=== PATIENT | female | born 1940 | race Caucasian/White ===

== ENCOUNTER 2017-08-10 01:45 | Inpatient (IN) | payer OTHER, MEDICARE ==
[~2017-08-10] VITALS: Ht 152.4 cm; Wt 77.1 kg
[~2017-08-10 01:45] MED LIST: ATORVASTATIN CA80 M1 PO; LASIX80 M1 PO; NORVASC5 M1 PO; OMEPRAZOLE20 M2 PO; PROAIR HFA8.5 GM INH; TENORMIN50 M1 PO; UNITHROID75 MCG PO
--- NOTE | 2017-08-10 12:23 | Operative Report ---
Operative/Inv Procedure Report Surgery Date: 08/10/17 Name of Procedure: Robotic cholecystectomy Pre-Operative Diagnosis: Cholelithiasis with prior choledocholithiasis Post-Operative Diagnosis: Same, obesity Estimated Blood Loss: less than 50ml Surgeon/Sports Physiologist: Gregg DIOP,Douglas Julian PA-C Anesthesia: general endotracheal tube, block IV Fluids: 1500 mL crystalloid Specimens: None Microbiology: None Complications: None Condition: Stable extubated to PACU Operative Indication: Marce is a 77-year-old female with a presentation of the common bile duct stones cleared by ERCP. She has residual gallstones within her gallbladder and presents today to have a cholecystectomy done with the robot. Operative/Procedure Note Note: Patient was taken to the operating room placed on the operating table supine posi. A finger sweep revealed there were no adhesions tion. Following awake timeout she underwent induction of general endotracheal anesthesia uneventfully. She had her left arm by her side Venodyne boots in place and received Ancef IV prior to skin incision. The right arm was extended up from the body no Bertrand was used. Oh G-tube was placed. A Block was performed by the anesthesia team bilaterally. The abdomen was then prepped widely with ChloraPrep and draped in usual sterile fashion with the onset was infiltrated in the course of the planned incision which was supraumbilical and carried down through deep pannus to the midline subumbilical fascia. This was opened vertically for short distance to gain exposure the preperitoneal fat. This was opened carefully with the cautery to get entry safely into the peritoneal cavity. A finger sweep revealed there were no adhesions and a 12 mm air seal blunt port placed. A pneumoperitoneum was achieved and the 8 mm 30 scope inserted. There were no adhesions in the upper abdomen the patient was then placed in steep reversed Trendelenburg position to 20. We placed 318 mm working ports right about the level of the umbilicus 2 on the right side and 1 on the left side all after infiltrating local anesthetic under direct vision. The division she Brigido was then docked and the camera inserted. We placed a prograsp and arm 1, fenestrated bipolar into and a dissecting scissors monopolar cautery and 4 with the camera in 3. The gallbladder was not yet in view but with lifting the edge of the liver we could see the edge of the gallbladder and I was able to grasp and and delivered up to towards the diaphragm exposing the entire length of the gallbladder. There were no adhesions to it. The fenestrated grasper was used on Crum's and to expose the triangle. I could sweep off the omentum and duodenum and periduodenal tissues anesthetic good length of the triangle tissues. Fire fly was then used since the patient had been injected with 2 mL of ICG one half hour before surgery. I could see the cystic duct well and the general location of the common duct through the tissues. I opened the peritoneum close to the neck of the gallbladder reflecting a large lymph node upwards. Carried this dissection with the obinna and cautery neck and began dissecting in the fat of the triangle and a fine first the cystic duct and then very medially a cystic artery. The peritoneum up the medial edge of the gallbladder and around posterior laterally as well. I isolated the artery which again was very medial and then return to isolate the cystic duct. This was very wide and I after skeletonizing it better I really reinflated the fire fly view to be sure I was seeing only the cystic duct which was the case as I could see what the course of the common duct nicely. I isolated the wide cystic duct with the cautery and then clipped 2 on the patient's side. When I went to create slightly more room on the gallbladder side with cautery to some bleeding on the back of the gallbladder near the neck of the duct this proved to be a small crossing artery off a posterior branch. Large clips had been used on the cystic duct and I placed a third clip and slightly farther which the bleeding. I then placed a fourth clip the side this time on the gallbladder side and then divided the cystic duct. Indeed there was a small intramuscular vessel or vessel right on the surface of the cystic duct that bled slightly with transection but quickly cauterized with the scissors. With the neck of the gallbladder now more freely active but better traction on the area of the artery. I placed a large clip on the gallbladder side just at the neck of the large node having isolated this anterior branch artery there and then divided there as well. I now begin to mobilize the gallbladder off of the liver bed but was suspicious that I might run into the posterior artery that was feeding the cystic duct. I considered getting more proximal control on the MAIN cystic artery and and dissected slightly around the stump of where I had transected the cystic duct. I found the artery here and clipped it 2 on the patient's side but didn't need to divide its here since I had already clipped and divided the anterior branch and would be looking to divide the posterior branch as it pulled the gallbladder up. This worked out nicely as the gallbladder came away from the liver bed with some simple cautery and dissection and I did not encounter the posterior branch. The gallbladder came away from the liver bed nicely with no violation of the liver bed. The gallbladder did leak some bile from a point of retraction but this was quickly aspirated up. Prior to taking down the last communications between the gallbladder and liver I inspected all the clips and the liver bed and the triangle structures and there was no bile leak or bleeding. We irrigated some suctioned all the fluid out and any residual bile or blood. The gallbladder was then finally detached placed in extraction bag and removed from the Air Seal Port. The robot was then undocked and the ports removed under direct vision. There was no bleeding. The pneumoperitoneum was released completely and then the fascia at the umbilicus closed with 2 [id number] sutures of 0 Maxon. Subcutaneous tissue was reapproximated interrupted 3-0 Vicryl sutures followed by 4-0 Monocryl subcuticular on the skin. Steri-Strips 2 x 2's and OpSite were placed. He tolerated the procedure well and taken to the recovery room in satisfactory condition extubated or sponge needle and instrument count from his correct 2 completion of the case. Findings: Normal gallbladder with wide cystic duct requiring large clips. 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 Discharge Disposition: PACU
--- NOTE | 2017-08-10 13:49 | Patient Discharge Instructions ---
Discharge Instructions General Discharge Information You were seen/treated for: Cholelithiasis with prior choledocholithiasis You had these procedures: Surgery Date: 08/10/17 Name of Procedure: Robotic cholecystectomy Watch for these problems: fever>101.3, increased pain, redness/swelling/drainage, dizziness, shortness of breath, chest pains No bath, but you may shower: Yes Other wound care: ok to remove outer dressings. leave white steri strips in place. keep incisions clean & dry. Diet Continue normal diet: Yes Recommended Diet: Low Fat Activity Full Activity/No Limits: No Activity Self Limited: Yes Pounds, do NOT lift more than: 10 Other activity limits: no heavy lifting. no strenuous activity. Acute Coronary Syndrome Inclusion Criteria At DC or during hospital stay patient has or had the following: ACS DIAGNOSIS No Discharge Core Measures Meds if any: Prescribed or Continued at Discharge Meds if any: NOT Prescribed or Continued at Discharge Congestive Heart Failure Inclusion Criteria At DC or during hospital stay patient has or had the following: CHF DIAGNOSIS No Discharge Core Measures Meds if any: Prescribed or Continued at Discharge Meds if any: NOT Prescribed or Continued at Discharge Cerebrovascular accident Inclusion Criteria At DC or during hospital stay patient has or had the following: CVA/TIA Diagnosis No Discharge Core Measures Meds if any: Prescribed or Continued at Discharge Meds if any: NOT Prescribed or Continued at Discharge Venous thromboembolism Inclusion Criteria VTE Diagnosis No VTE Type NONE VTE Confirmed by (Test) NONE Discharge Core Measures - Per Current guidelines, there needs to be overlap - treatment for the first 5 days of Warfarin therapy. - If discharged on Warfarin prior to 5 days of - overlap therapy, the patient will need to be - assessed for post discharge needs including - *Post discharge parental anticoagulation - *Warfarin and/or parental anticoagulation education - *Follow up date to check INR post discharge At least 5 days overlap therapy as Inpatient No Meds if any: Prescribed or Continued at Discharge Note: Overlap Therapy is Warfarin and Anticoagulant Meds if any: NOT Prescribed or Continued at Discharge
[2017-08-10] MEDS ORDERED: PERCOCET 5-3251 EACH PO (13:52)
--- NOTE | 2017-08-10 13:57 | Surg Short-stay <48hrs Dis Sum ---
Visit Information Visit Dates Admission Date: 08/10/17 Discharge Date: 08/13/17 Surgical Short Stay DC Summary Admission Diagnosis: Cholelithiasis with prior choledocholithiasis Final Diagnosis: same, s/p same as above, s/p Robotic cholecystectomy (08/10/17) Procedure(s): Surgery Date: 08/10/17 Name of Procedure: Robotic cholecystectomy Summary/Significant Findings: Electively scheduled robotic cholecystectomy on 08/10/17 by for history of cholelithiasis with prior choledocholithiasis. Diet advanced as tolerated post-operatively. Pain control transitioned from iv to oral medication prior to discharge to home. Her liver function tests were checked post- operatively. Pain control transitioned from iv to oral medication as able. PT eval obtained for deconditioning. Chest and abdominal xrays ordered on post-op day#3 for reported shortness of breath with associated nausea for suspected post -op ileus, with o2 requirement of 2L nasal cannula. Condition at Discharge: stable Discharge Disposition: home or self care Discharge instructions provided to patient/family: Yes Post discharge follow-up plan: 2 week follow up with Copies to: Emma DIOP,Murray Robles
[2017-08-10 14:40] VITALS: BP 108/60
--- NOTE | 2017-08-10 16:22 | PN- General Surgery ---
Subjective Subjective: POST-OP NOTE Reports some abdominal discomfort. Intermittent nausea. Taking ice chips. Not yet out of bed. No dizziness. No shortness of breath. No chest pains. Objective Vital Signs and I&Os Vital Signs Date Time Temp Pulse Resp B/P B/P Pulse O2 O2 Flow FiO2 Mean Ox Delivery Rate 08/10 1440 98.1 66 18 108/60 94 Nasal 2.0L Cannula Intake & Output 08/10 1600 08/10 0800 08/10 0000 08/09 1600 08/09 0800 08/09 0000 Intake Total Output Total Balance Patient 170 lb Weight Physical Exam: General - alert & oriented x 3. comfortable. no acute distress. Lungs - clear bilaterally. no w/r/r. Cardiac - s1s2 Abdomen - soft. dressings c/d/i. expected billy-incisional tenderness. Extremities - warm bilaterally. no c/c/e. calves soft and nontender b/l. Current Medications: Current Medications Sig/Marquez Start time Last Medication Dose Route Stop Time Status Admin Acetaminophen 1,000 MG Q6H 08/10 1500 AC N/A 1 UNIT IV 08/11 0914 Amlodipine Besylate 5 MG DAILY 08/11 0900 AC PO Atenolol 50 MG BID 08/10 2100 AC PO Atorvastatin Calcium 80 MG 1700 08/10 1700 AC PO Dextrose/Sodium 1,000 ML Q13H 08/10 1445 AC 08/10 Chloride IV 1510 Docusate Sodium 100 MG BID PRN 08/10 1500 AC PO Fentanyl Citrate 250 MCG .STK-MED ONE 08/10 0715 DC IM 08/10 0716 Furosemide 80 MG DAILY 08/11 0900 AC PO Heparin Sodium 5,000 UNIT Q8 08/10 2200 AC (Porcine) SC Levothyroxine Sodium 0.075 MG DAILY AC 08/11 0700 AC PO Midazolam HCl 2 MG .STK-MED ONE 08/10 0716 DC IM 08/10 0717 Omeprazole 20 MG BID 08/10 2100 AC PO Oxycodone HCl 5 MG Q4-6 PRN PRN 08/10 1500 AC PO Oxycodone HCl 10 MG Q4-6 PRN PRN 08/10 1500 AC 08/10 PO 1504 Assessment/Plan Assessment/Plan This 77 year old female with hx asthma, htn, hld, gerd, is POD#0 s/p robotic cholecystectomy for hx cholelithiasis and prior choledocholithiasis advance diet as tolerated pain control as ordered f/u am labs hep sc - dvt ppx home meds ordered d/c planning for tomorrow morning will d/w Core Measures Venous Thromboembolism VTE Risk Factors Surgery No Mechanical VTE Prophylaxis d/t N/A MechProphylax Ordered No VTE Pharm Prophylaxis d/t NA PharmProphylax ordered
[2017-08-10 22:04] VITALS: BP 104/60
[2017-08-11 06:53] VITALS: BP 106/64
[2017-08-11 08:30] LABS: ABSOLUTE BASOPHIL COUNT 0 /CUMM (0.0-0.2); ABSOLUTE EOSINOPHIL COUNT 0 /CUMM (0.0-0.7); ABSOLUTE GRANULOCYTE CT 13.3 /CUMM (1.4-6.5); ABSOLUTE LYMPH COUNT 1.5 /CUMM (1.2-3.4); ABSOLUTE MONOCYTE COUNT 0.9 /CUMM (0.10-0.60); BASOPHIL % 0 % (0.0-2.0); EOSINOPHIL % 0 % (0-5); MEAN CORPUSCULAR HGB 29.2 PG (27.0-31.0); MEAN CORPUSCULAR HGB CONC 33.6 G/DL (33.0-37.0); MEAN CORPUSCULAR VOLUME 86.8 FL (81.0-99.0); MEAN PLATELET VOLUME 7.2 FL (7.4-10.4); PLATELET COUNT 257 /CUMM (130-400); RBC DISTRIBUTION WIDTH 16.8 % (11.5-14.5); RED BLOOD CELL CT 3.92 /CUMM (4.20-5.40); WHITE BLOOD CELL COUNT 15.7 /CUMM (4.8-10.8)
[2017-08-11 09:17] LABS: GRANULOCYTE % 84.6 % (42.2-75.2)
--- NOTE | 2017-08-11 09:22 | PN- General Surgery ---
See Addendum Surgical Brief Attending Note Brief Attending Note: Looks good sitting up in bed. C/O L port site area pain despite Kristine block. Hasnt been OOB yet. Abd is soft and tender around ports on L but not subcostal. LFTs fine but CBC pending. Lives alone and very arthritic so may need another day before going home. PT consult may be helpful
[2017-08-11 15:10] VITALS: BP 100/54
[2017-08-11 20:59] VITALS: BP 118/58
[2017-08-12 06:38] VITALS: BP 114/52
--- NOTE | 2017-08-12 10:44 | PN- General Surgery ---
See Addendum Subjective Subjective: Complaining of pain this morning - slow to recover Has not had much po other than liquids due to not wanting to eat. Denies nausea or pain with food. Ambulated in room with PT yesterday - has not been oob today. +flatus Objective Vital Signs and I&Os Vital Signs Date Time Temp Pulse Resp B/P B/P Pulse O2 O2 Flow FiO2 Mean Ox Delivery Rate 08/13 955 92 Nasal 1.0L Cannula 08/12 0956 90 Room Air 08/12 0953 98.8 08/12 0808 62 114/52 08/12 0807 62 114/52 08/12 0800 91 Nasal 1.0L Cannula 08/12 0638 100.5 62 20 114/52 91 08/12 0050 Nasal 1.0L Cannula 08/11 2058 99.4 74 18 118/58 94 Room Air 08/115 70 118/58 08/11 1600 93 Nasal 1.0L Cannula 08/11 1510 98.1 60 19 100/54 93 Nasal Cannula Intake & Output 08/12 1600 08/12 0800 08/12 0000 08/11 1600 08/11 0800 08/11 0000 Intake Total 250 1150 1000 850 900 Output Total 134 121 7778 550 Balance -450 250 -600 300 900 Intake, IV 300 400 600 300 Intake, Oral 250 850 600 250 600 Output, Urine 558 349 1976 550 Patient 170 lb Weight Physical Exam: Tmax 100.5, T current 98.8 Sat 98% on 1LNC General: in bed complaining of incisional pain which seems to radiate to her right hip although she also states that she has chronic pain including her back from arthritis and sciatica so that may be part of it per patient Abd: soft, good bowel sounds, nondistended, appropriate periincisional tenderness Ext: warm, no edema, calves are nontender Assessment/Plan Assessment/Plan 77yo female s/p robotic nicki pod 2 PT - assess for ability to dc home, she lives alone as her is in rehab right now continue pain management wean O2 encourage po intake May have to convert to full admission if she isn't able to be discharged later today. Core Measures Venous Thromboembolism VTE Risk Factors Surgery No Mechanical VTE Prophylaxis d/t N/A MechProphylax Ordered No VTE Pharm Prophylaxis d/t NA PharmProphylax ordered
[2017-08-12 12:26] LABS: ABSOLUTE BASOPHIL COUNT 0.1 /CUMM (0.0-0.2); ABSOLUTE EOSINOPHIL COUNT 0.1 /CUMM (0.0-0.7); ABSOLUTE GRANULOCYTE CT 12.1 /CUMM (1.4-6.5); ABSOLUTE LYMPH COUNT 1.7 /CUMM (1.2-3.4); ABSOLUTE MONOCYTE COUNT 0.8 /CUMM (0.10-0.60); BASOPHIL % 0.5 % (0.0-2.0); EOSINOPHIL % 0.6 % (0-5); HEMATOCRIT 35.5 % (37-47); MEAN CORPUSCULAR HGB CONC 33.5 G/DL (33.0-37.0); MEAN CORPUSCULAR VOLUME 86.5 FL (81.0-99.0); MEAN PLATELET VOLUME 6.8 FL (7.4-10.4); PLATELET COUNT 283 /CUMM (130-400); RBC DISTRIBUTION WIDTH 17.1 % (11.5-14.5); WHITE BLOOD CELL COUNT 14.8 /CUMM (4.8-10.8)
[2017-08-12 14:14] VITALS: BP 104/50
[2017-08-12 21:13] VITALS: BP 110/60
[2017-08-13 07:00] VITALS: BP 122/61
--- NOTE | 2017-08-13 08:00 | PN- General Surgery ---
See Addendum Subjective Subjective: Reported some shortness of breath earlier and pain with breathing. No chest pains. No dizziness. Intermittently nauseous. No vomiting. Passing flatus but no bm. She has not been walking. She states she does not use assistive devices at baseline for ambulation. Currently her is in a rehab facility, so she would be going home alone (with some help from her daughter). Objective Vital Signs and I&Os Vital Signs Date Time Temp Pulse Resp B/P B/P Pulse O2 O2 Flow FiO2 Mean Ox Delivery Rate 08/13 0000 Nasal 1.0L Cannula 08/129 70 110/60 08/12 2113 99.1 70 20 110/60 92 Nasal 1.0L Cannula 08/12 1600 93 Nasal 1.0L Cannula 08/12 1414 98.7 66 20 104/50 93 Nasal 1.0L Cannula 08/12 1315 93 Nasal 1.0L Cannula 08/12 0956 92 Nasal 1.0L Cannula 08/12 0956 90 Room Air 08/12 0953 98.8 08/12 0808 62 114/52 08/12 0807 62 114/52 08/12 0800 91 Nasal 1.0L Cannula Intake & Output 08/13 0800 08/13 0000 08/12 1600 08/12 0800 08/12 0000 08/11 1600 Intake Total 099 125 2277 1000 Output Total 300 300 223 261 5390 Balance -300 310 -450 250 -600 Intake, IV 10 300 400 Intake, Oral 600 250 850 600 Output, Urine 300 300 632 516 1346 Patient 170 lb Weight Physical Exam: General - alert & oriented x 3. comfortable. no acute distress. Lungs - decreased breath sounds bilateral bases. poor effort. Cardiac - s1s2. Abdomen - softly distended. bowel sounds appreciated. dressings c/d/i. expected billy-incisional tenderness. Extremities - warm bilaterally. trace edema b/l lower legs. calves soft and nontender. athrombics active b/l. Current Medications: Current Medications Sig/Marquez Start time Last Medication Dose Route Stop Time Status Admin Albuterol Sulfate 2 PUF Q4P PRN 08/10 2114 AC INH Amlodipine Besylate 5 MG DAILY 08/11 09 AC 08/12 PO 08 Atenolol 50 MG BID 08/10 2099 AC 08/12 PO 215 Atorvastatin Calcium 80 MG 1700 08/10 1699 AC 08/12 PO 1623 Docusate Sodium 100 MG BID PRN 08/10 1500 AC PO Furosemide 80 MG DAILY 08/11 0900 AC 08/12 PO 0808 Heparin Sodium 5,000 UNIT Q8 08/10 2200 AC 08/13 (Porcine) SC 0656 Levothyroxine Sodium 0.075 MG DAILY AC 08/11 0700 AC 08/13 PO 0656 Melatonin 5 MG AT BEDTIME 08/10 2245 AC 08/12 PO 215 Omeprazole 20 MG BID 08/10 2100 AC 08/12 PO 2158 Oxycodone HCl 5 MG Q4-6 PRN PRN 08/10 1500 AC 08/12 PO 1720 Oxycodone HCl 10 MG Q4-6 PRN PRN 08/10 1500 AC 08/13 PO 0434 Potassium Chloride 10 MEQ BID 08/11 1145 AC 08/12 PO 215 Results Last 48 Hours of Labs: Laboratory Tests 08/13 08/12 0700 1205 Chemistry Sodium (137 - 145 mmol/L) 140 Potassium (3.5 - 5.1 mmol/L) 3.9 Chloride (98 - 107 mmol/L) 97 L Carbon Dioxide (22 - 30 mmol/L) 33 H Anion Gap (5 - 16) 10 BUN (7 - 17 mg/dL) 9 Creatinine (0.5 - 1.0 mg/dL) 0.6 Estimated GFR (>60 ml/min) > 60 BUN/Creatinine Ratio (7 - 25 %) 15.0 Total Bilirubin (0.2 - 1.3 mg/dL) 1.3 Direct Bilirubin (< 0.4 mg/dL) 0.3 AST (14 - 36 U/L) 25 ALT (9 - 52 U/L) 44 Alkaline Phosphatase (<127 U/L) 98 Total Protein (6.3 - 8.2 g/dL) 5.8 L Albumin (3.5 - 5.0 g/dL) 3.2 L Hematology CBC w Diff Pending NO MAN DIFF REQ WBC (4.8 - 10.8 /CUMM) Pending 14.8 H RBC (4.20 - 5.40 /CUMM) Pending 4.10 L Hgb (12.0 - 16.0 G/DL) Pending 11.9 L Hct (37 - 47 %) Pending 35.5 L MCV (81.0 - 99.0 FL) Pending 86.5 MCH (27.0 - 31.0 PG) Pending 29.0 MCHC (33.0 - 37.0 G/DL) Pending 33.5 RDW (11.5 - 14.5 %) Pending 17.1 H Plt Count (130 - 400 /CUMM) Pending 283 MPV (7.4 - 10.4 FL) Pending 6.8 L Gran % (42.2 - 75.2 %) 82.0 H Lymphocytes % (20.5 - 51.1 %) 11.3 L Monocytes % (1.7 - 9.3 %) 5.6 Eosinophils % (0 - 5 %) 0.6 Basophils % (0.0 - 2.0 %) 0.5 Absolute Granulocytes (1.4 - 6.5 /CUMM) 12.1 H Absolute Lymphocytes (1.2 - 3.4 /CUMM) 1.7 Absolute Monocytes (0.10 - 0.60 /CUMM) 0.8 H Absolute Eosinophils (0.0 - 0.7 /CUMM) 0.1 Absolute Basophils (0.0 - 0.2 /CUMM) 0.1 Assessment/Plan Assessment/Plan This 77 year old female with hx asthma, htn, hld, gerd, is POD#3 s/p robotic cholecystectomy for hx cholelithiasis and prior choledocholithiasis, deconditioned with post-op hypoxia requiring O2 with reported shortness of breath this morning ?post-op ileus, atelectasis r/o infilatrate nauseous at times with low fat diet tylenol / oxycodone prn pain control PT eval. ?home vs str f/u cbc check cxr and abdominal multiview ?post-op ileus, atelectasis r/o infiltrated hep sc - dvt ppx oob/ambulation IST reviewed. wean O2 as able case management to assess for needs d/c planning will d/w Core Measures Venous Thromboembolism VTE Risk Factors Surgery No Mechanical VTE Prophylaxis d/t N/A MechProphylax Ordered No VTE Pharm Prophylaxis d/t NA PharmProphylax ordered
[2017-08-13 08:29] LABS: ABSOLUTE BASOPHIL COUNT 0 /CUMM (0.0-0.2); ABSOLUTE EOSINOPHIL COUNT 0 /CUMM (0.0-0.7); ABSOLUTE GRANULOCYTE CT 11.4 /CUMM (1.4-6.5); ABSOLUTE LYMPH COUNT 1.6 /CUMM (1.2-3.4); ABSOLUTE MONOCYTE COUNT 0.6 /CUMM (0.10-0.60); BASOPHIL % 0.3 % (0.0-2.0); EOSINOPHIL % 0.3 % (0-5); HEMATOCRIT 34.8 % (37-47); MEAN CORPUSCULAR HGB CONC 33.7 G/DL (33.0-37.0); MEAN PLATELET VOLUME 7.4 FL (7.4-10.4); PLATELET COUNT 254 /CUMM (130-400); RBC DISTRIBUTION WIDTH 16.6 % (11.5-14.5); RED BLOOD CELL CT 4.04 /CUMM (4.20-5.40); WHITE BLOOD CELL COUNT 13.6 /CUMM (4.8-10.8)
[2017-08-13 09:20] LABS: GRANULOCYTE % 83.5 % (42.2-75.2)
--- NOTE | 2017-08-13 10:08 | RADIOLOGY REPORT ---
EXAMINATION: XR ABDOMEN MULTIPLE VIEWS Chest x-ray 2 views CLINICAL INDICATION: Postop day 3 status post robotic surgery. Postop ileus shortness of breath nausea COMPARISON: None TECHNIQUE: Supine and upright views of the abdomen. 2 views of the chest FINDINGS: Abdomen: There is a small amount of free air below the diaphragm consistent with recent surgery. The gas pattern is nonobstructive. There are no suspicious calcifications. Right hip arthroplasties partially visualized there is spondylosis of the lumbar spine. CHEST: Free air below the right hemidiaphragm consistent with recent surgery. Low lung volumes likely due to suboptimal inspiration. Lungs clear. Cardiac silhouette mediastinum pulmonary vascularity are normal. IMPRESSION: Chest: No acute disease. ABDOMEN: Nonobstructive gas pattern. Free air consistent with recent surgery
[2017-08-13 14:50] VITALS: BP 110/58
[2017-08-13 21:19] VITALS: BP 118/64
[2017-08-14 06:23] VITALS: BP 114/60
--- NOTE | 2017-08-14 08:42 | PN- General Surgery ---
Subjective Subjective: Reports ongoing right upper quadrant pain. Liver function tests increasing yesterday. Difficulty mobolizing yesterday, which appears to be limited by pain. Tolerating diet. No nausea/vomiting. Passing flatus, but no bm. No dizziness. No shortness of breath. No chest pains. Objective Vital Signs and I&Os Vital Signs Date Time Temp Pulse Resp B/P B/P Pulse O2 O2 Flow FiO2 Mean Ox Delivery Rate 08/14 826 68 114/60 08/14 08 68 114/60 08/14 08 94 Nasal 2.0L Cannula 08/14 06 98.6 68 20 114/60 95 Nasal 2.0L Cannula 08/14 0000 Nasal 2.0L Cannula 08/13 2118 99.7 74 18 118/64 92 Nasal 2.0L Cannula 08/13 2017 74 118/64 08/13 1450 97.9 68 20 110/58 95 Nasal 2.0L Cannula 08/13 0924 70 120/64 08/13 0924 70 120/64 Intake & Output 08/14 1600 08/14 0808/14 0000 08/13 1600 08/13 0808/13 0000 Intake Total 240 240 720 Output Total 1000 600 300 Balance -760 240 120 -300 Intake, Oral 240 240 720 Number 0 Bowel Movements Output, Urine 1000 600 300 Physical Exam: General - alert & oriented x 3. comfortable. no acute distress. Lungs - clear. decreased breath sounds b/l bases. Cardiac - s1s2. Abdomen - softly distended. tenderness localized mostly to right upper quadrant and epigastrium. dressings c/d/i. Extremities - warm bilaterally. trace edema b/l lower legs. calves soft and nontender b/l. athrombics active b/l. Current Medications: Current Medications Sig/Marquez Start time Last Medication Dose Route Stop Time Status Admin Acetaminophen 500 MG Q4-6 PRN PRN 08/13 08 AC PO Albuterol Sulfate 2 PUF Q4P PRN 08/10 2114 AC INH Amlodipine Besylate 5 MG DAILY 08/11 0900 AC 08/14 PO 08 Atenolol 50 MG BID 08/10 2100 AC 08/14 PO 0826 Atorvastatin Calcium 80 MG 1700 08/10 1700 AC 08/13 PO 1750 Bisacodyl 10 MG DAILY NEEDED PRN 08/13 814 AC MO Docusate Sodium 100 MG BID 08/13 0900 AC 08/14 PO 0827 Docusate Sodium 100 MG BID PRN 08/10 1500 DC PO 08/13 0859 Furosemide 80 MG DAILY 08/11 0900 AC 08/14 PO 0826 Heparin Sodium 5,000 UNIT Q8 08/10 2200 AC 08/14 (Porcine) SC 0546 Levothyroxine Sodium 0.075 MG DAILY AC 08/11 0700 AC 08/14 PO 0546 Melatonin 5 MG AT BEDTIME 08/10 2245 AC 08/13 PO 2010 Omeprazole 20 MG BID 08/10 2100 AC 08/14 PO 08 Oxycodone HCl 5 MG Q4-6 PRN PRN 08/10 1500 AC 08/12 PO 172 Oxycodone HCl 10 MG Q4-6 PRN PRN 08/10 1500 AC 08/14 PO 0229 Polyethylene Glycol 17 GM DAILY PRN 08/13 2004 AC 08/13 PO 2013 Potassium Chloride 40 MEQ ONCE ONE 08/13 1345 DC 08/13 PO 08/13 1346 1532 Potassium Chloride 10 MEQ BID 08/11 1145 AC 08/14 PO 0833 Results Last 48 Hours of Labs: Laboratory Tests 08/14 08/13 08/13 0753 1254 0700 Chemistry Sodium (137 - 145 mmol/L) Pending 140 Potassium (3.5 - 5.1 mmol/L) Pending 3.2 L Chloride (98 - 107 mmol/L) Pending 94 L Carbon Dioxide (22 - 30 mmol/L) Pending 32 H Anion Gap (5 - 16) Pending 14 BUN (7 - 17 mg/dL) Pending 10 Creatinine (0.5 - 1.0 mg/dL) Pending 0.6 Estimated GFR (>60 ml/min) > 60 BUN/Creatinine Ratio (7 - 25 %) Pending 16.7 Total Bilirubin (0.2 - 1.3 mg/dL) Pending 1.8 H Direct Bilirubin (< 0.4 mg/dL) Pending 0.5 H AST (14 - 36 U/L) Pending 27 ALT (9 - 52 U/L) Pending 50 Alkaline Phosphatase (<127 U/L) Pending 142 H Total Protein (6.3 - 8.2 g/dL) Pending 6.1 L Albumin (3.5 - 5.0 g/dL) Pending 3.2 L Hematology CBC w Diff Pending NO MAN DIFF REQ WBC (4.8 - 10.8 /CUMM) Pending 13.6 H RBC (4.20 - 5.40 /CUMM) Pending 4.04 L Hgb (12.0 - 16.0 G/DL) Pending 11.7 L Hct (37 - 47 %) Pending 34.8 L MCV (81.0 - 99.0 FL) Pending 86.0 MCH (27.0 - 31.0 PG) Pending 29.0 MCHC (33.0 - 37.0 G/DL) Pending 33.7 RDW (11.5 - 14.5 %) Pending 16.6 H Plt Count (130 - 400 /CUMM) Pending 254 MPV (7.4 - 10.4 FL) Pending 7.4 Gran % (42.2 - 75.2 %) 83.5 H Lymphocytes % (20.5 - 51.1 %) 11.4 L Monocytes % (1.7 - 9.3 %) 4.5 Eosinophils % (0 - 5 %) 0.3 Basophils % (0.0 - 2.0 %) 0.3 Absolute Granulocytes (1.4 - 6.5 /CUMM) 11.4 H Absolute Lymphocytes (1.2 - 3.4 /CUMM) 1.6 Absolute Monocytes (0.10 - 0.60 /CUMM) 0.6 Absolute Eosinophils (0.0 - 0.7 /CUMM) 0 Absolute Basophils (0.0 - 0.2 /CUMM) 0 04/15 1205 Chemistry Sodium (137 - 145 mmol/L) 140 Potassium (3.5 - 5.1 mmol/L) 3.9 Chloride (98 - 107 mmol/L) 97 L Carbon Dioxide (22 - 30 mmol/L) 33 H Anion Gap (5 - 16) 10 BUN (7 - 17 mg/dL) 9 Creatinine (0.5 - 1.0 mg/dL) 0.6 Estimated GFR (>60 ml/min) > 60 BUN/Creatinine Ratio (7 - 25 %) 15.0 Total Bilirubin (0.2 - 1.3 mg/dL) 1.3 Direct Bilirubin (< 0.4 mg/dL) 0.3 AST (14 - 36 U/L) 25 ALT (9 - 52 U/L) 44 Alkaline Phosphatase (<127 U/L) 98 Total Protein (6.3 - 8.2 g/dL) 5.8 L Albumin (3.5 - 5.0 g/dL) 3.2 L Hematology CBC w Diff NO MAN DIFF REQ WBC (4.8 - 10.8 /CUMM) 14.8 H RBC (4.20 - 5.40 /CUMM) 4.10 L Hgb (12.0 - 16.0 G/DL) 11.9 L Hct (37 - 47 %) 35.5 L MCV (81.0 - 99.0 FL) 86.5 MCH (27.0 - 31.0 PG) 29.0 MCHC (33.0 - 37.0 G/DL) 33.5 RDW (11.5 - 14.5 %) 17.1 H Plt Count (130 - 400 /CUMM) 283 MPV (7.4 - 10.4 FL) 6.8 L Gran % (42.2 - 75.2 %) 82.0 H Lymphocytes % (20.5 - 51.1 %) 11.3 L Monocytes % (1.7 - 9.3 %) 5.6 Eosinophils % (0 - 5 %) 0.6 Basophils % (0.0 - 2.0 %) 0.5 Absolute Granulocytes (1.4 - 6.5 /CUMM) 12.1 H Absolute Lymphocytes (1.2 - 3.4 /CUMM) 1.7 Absolute Monocytes (0.10 - 0.60 /CUMM) 0.8 H Absolute Eosinophils (0.0 - 0.7 /CUMM) 0.1 Absolute Basophils (0.0 - 0.2 /CUMM) 0.1 Assessment/Plan Assessment/Plan This 77 year old female with hx asthma, htn, hld, gerd, is POD#4 s/p robotic cholecystectomy for hx cholelithiasis and prior choledocholithiasis, deconditioned with worsening transaminitis yesterday tolerating low fat diet pain improves with oxycodone continue PT. appears that she will likely need STR f/u labs this morning hep sc - dvt ppx oob/ambulation IST reviewed. wean O2 as able will d/w Core Measures Venous Thromboembolism VTE Risk Factors Surgery No Mechanical VTE Prophylaxis d/t N/A MechProphylax Ordered No VTE Pharm Prophylaxis d/t NA PharmProphylax ordered
[2017-08-14 09:02] LABS: ABSOLUTE BASOPHIL COUNT 0 /CUMM (0.0-0.2); ABSOLUTE EOSINOPHIL COUNT 0.1 /CUMM (0.0-0.7); ABSOLUTE GRANULOCYTE CT 9.3 /CUMM (1.4-6.5); ABSOLUTE LYMPH COUNT 1.7 /CUMM (1.2-3.4); ABSOLUTE MONOCYTE COUNT 0.8 /CUMM (0.10-0.60); BASOPHIL % 0.3 % (0.0-2.0); EOSINOPHIL % 1.2 % (0-5); GRANULOCYTE % 77.4 % (42.2-75.2); HEMATOCRIT 34.5 % (37-47); MEAN CORPUSCULAR HGB 28.9 PG (27.0-31.0); MEAN CORPUSCULAR HGB CONC 33.4 G/DL (33.0-37.0); MEAN CORPUSCULAR VOLUME 86.5 FL (81.0-99.0); MEAN PLATELET VOLUME 7.2 FL (7.4-10.4); PLATELET COUNT 308 /CUMM (130-400); RBC DISTRIBUTION WIDTH 16.6 % (11.5-14.5); RED BLOOD CELL CT 3.99 /CUMM (4.20-5.40)
--- NOTE | 2017-08-14 12:26 | PN- General Surgery ---
Surgical Brief Attending Note Brief Attending Note: Patient overall slowly getting better Transaminases slightly BUT bili Rocha down and within normal limits Still requiring O2 via nasal cannula Plan: Medical consult today regarding hypoxia Pending medical consult likely discharge home tomorrow morning
--- NOTE | 2017-08-14 14:20 | Cons- Medical ---
Karthik DIOP,[facility] 08/14/17 1420: General Information and HPI Consulting Request Date of Consult: 08/14/17 Requested By: Gregg DIOP,Douglas Albarran Reason for Consult: Hypoxia Source of Information: patient, family, old records Exam Limitations: no limitations History of Present Illness: Mrs. Zheng is a pleasant 77-year-old female with past medical history of abdominal aortic aneurysm, arthralgia, cutaneous T-cell lymphoma, hypothyroidism , dyslipidemia, GERD, hyperlipidemia, hypertension, macular degeneration, osteoarthritis, TIA and choledocholithiasis who came in for a scheduled robotic cholecystectomy on 08/10/2017. Surgical procedure performed by Dr Escobedo without any complications. She was initially pain controlled with IV pain medications and transitioned to oral medications. Her LFTs have been monitored and appeared normal. Patient also has been working with physical therapy. The medical team was consulted due to the fact that the patient remains persistently hypoxemic. At the time of our clinical interaction the patient was alert and oriented. She appeared comfortable. She endorsed no complaints except she states that she's had a difficult time tolerating by mouth intake due to abdominal pain. She also states that she would like to be weaned off oxygen owing to the fact that she doesn't use oxygen at home. Denied any fever, chills, nausea, vomiting. For anticoagulation the patient has been maintained on heparin subcutaneous 5000 units every 8. Allergies/Medications Allergies: Coded Allergies: lisinopril (cough 08/10/17) sulfamethoxazole (From BACTRIM) (HIVES 08/08/17) trimethoprim (From BACTRIM) (HIVES 08/08/17) Current Medications: Current Medications Sig/Marquez Start time Last Medication Dose Route Stop Time Status Admin Acetaminophen 500 MG Q4-6 PRN PRN 08/13 08 AC PO Albuterol Sulfate 2 PUF Q4P PRN 08/10 2115 AC INH Amlodipine Besylate 5 MG DAILY 08/11 09 AC 08/14 PO 0827 Atenolol 50 MG BID 08/10 2100 AC 08/14 PO 0826 Atorvastatin Calcium 80 MG 1700 08/10 1700 AC 08/13 PO 1750 Bisacodyl 10 MG DAILY NEEDED PRN 08/13 0815 AC NC Docusate Sodium 100 MG BID 08/13 09 AC 08/14 PO 08 Furosemide 80 MG DAILY 08/11 0900 AC 08/14 PO 0826 Heparin Sodium 5,000 UNIT Q8 08/10 2200 AC 08/14 (Porcine) SC 1327 Levothyroxine Sodium 0.075 MG DAILY AC 08/11 0700 AC 08/14 PO 0546 Melatonin 5 MG AT BEDTIME 08/10 2245 AC 08/13 PO 2010 Omeprazole 20 MG BID 08/10 2100 AC 08/14 PO 0827 Oxycodone HCl 5 MG Q4-6 PRN PRN 08/10 1500 AC 08/12 PO 1720 Oxycodone HCl 10 MG Q4-6 PRN PRN 08/10 1500 AC 08/14 PO 1141 Polyethylene Glycol 17 GM DAILY PRN 08/13 2004 AC 08/13 PO 2012 Potassium Chloride 10 MEQ BID 08/11 1145 AC 08/14 PO 0833 Review of Systems Review of Systems Constitutional: Reports: see HPI, weakness. Denies: chills, diaphoresis, fever, malaise. GI: Reports: abdominal pain. Denies: bloating, constipation. Past History Travel History Traveled to [place] past 21 day No Medical History Blood Transfusion Hx: Yes Neurological: TIA EENT: cataracts Cardiovascular: aortic aneurysm, hypertension Respiratory: NONE Gastrointestinal: GERD Hepatic: cholelithiasis Renal: NONE Musculoskeletal: osteoarthritis Psychiatric: NONE Endocrine: hypothyroidism Blood Disorders: NONE Cancer(s): CONT T CELL LYPHOMA "CTCL" [employer] STRATEGY/Reproductive: NONE Surgical History Surgical History: cholecystectomy Psychosocial History Where Do You Live? Home Smoking Status: Former Smoker Exam & Diagnostic Data Last 24 Hrs of Vital Signs/I&O Vital Signs Date Time Temp Pulse Resp B/P B/P Pulse O2 O2 Flow FiO2 Mean Ox Delivery Rate 08/14 826 68 114/60 08/14 0826 68 114/60 08/14 0800 94 Nasal 2.0L Cannula 08/14 0623 98.6 68 20 114/60 95 Nasal 2.0L Cannula 08/14 0000 Nasal 2.0L Cannula 08/139 99.7 74 18 118/64 92 Nasal 2.0L Cannula 08/13 2017 74 118/64 08/13 1450 97.9 68 20 110/58 95 Nasal 2.0L Cannula Intake & Output 08/14 1600 08/14 0800 08/14 0000 Intake Total 450 240 240 Output Total 350 1000 Balance 100 -760 240 Intake, Oral 450 240 240 Number 0 Bowel Movements Output, Urine 350 1000 Physical Exam General Appearance: well developed/nourished, no apparent distress, alert, awake , comfortable Ears, Nose, Throat: normal pharynx, normal ENT inspection Neck: normal inspection, supple Respiratory: normal breath sounds, chest non-tender, no respiratory distress Cardiovascular: regular rate/rhythm Peripheral Pulses: 4+ dorsalis pedis (R), 4+ dorsalis pedis (L) Gastrointestinal: normal bowel sounds, soft, guarding, tenderness, Bandages in place from recent surgery Back: normal inspection Extremities: no edema, Lower extremity swelling. No calf tenderness. Neurologic/Psych: awake, alert, oriented x 3, program mgr II-XII nml as tested Cranial Nerves: normal hearing, normal speech, PERRL Last 24 Hrs of Labs/Alfonzo: Laboratory Tests 08/14/17 1555: D-Dimer High Sensitivty Cancelled 08/14/17 0753: Anion Gap 11, Estimated GFR > 60, BUN/Creatinine Ratio 18.0, Magnesium 2.0, Total Bilirubin 1.1, Direct Bilirubin 0.3, AST 31, ALT 69 H, Alkaline Phosphatase 145 H, Total Protein 5.8 L, Albumin 3.0 L, CBC w Diff NO MAN DIFF REQ, RBC 3.99 L, MCV 86.5, MCH 28.9, MCHC 33.4, RDW 16.6 H, MPV 7.2 L, Gran % 77.4 H, Lymphocytes % 14.2 L, Monocytes % 6.9, Eosinophils % 1.2, Basophils % 0.3, Absolute Granulocytes 9.3 H, Absolute Lymphocytes 1.7, Absolute Monocytes 0.8 H, Absolute Eosinophils 0.1, Absolute Basophils 0 Diagnostic Data CXR Results SERVICE DATE: 08/13/17- EXAM TYPE: RAD - [id number] VIEWS; XRY-CHEST XRAY, TWO VIEWS EXAMINATION: XR ABDOMEN MULTIPLE VIEWS Chest x-ray 2 views CLINICAL INDICATION: Postop day 3 status post robotic surgery. Postop ileus shortness of breath nausea COMPARISON: None TECHNIQUE: Supine and upright views of the abdomen. 2 views of the chest FINDINGS: Abdomen: There is a small amount of free air below the diaphragm consistent with recent surgery. The gas pattern is nonobstructive. There are no suspicious calcifications. Right hip arthroplasties partially visualized there is spondylosis of the lumbar spine. CHEST: Free air below the right hemidiaphragm consistent with recent surgery. Low lung volumes likely due to suboptimal inspiration. Lungs clear. Cardiac silhouette mediastinum pulmonary vascularity are normal. IMPRESSION: Chest: No acute disease. ABDOMEN: Nonobstructive gas pattern. Free air consistent with recent surgery DICTATED BY: Jc Mcguire MD Other Results LOCATION: [facility] ORDERING PHYSICIAN: Maryjo CORONADO SERVICE DATE: 08/13/17- EXAM TYPE: RAD - HYN-CRLEMQG-HCNGKPJA VIEWS; XRY-CHEST XRAY, TWO VIEWS EXAMINATION: XR ABDOMEN MULTIPLE VIEWS Chest x-ray 2 views CLINICAL INDICATION: Postop day 3 status post robotic surgery. Postop ileus shortness of breath nausea COMPARISON: None TECHNIQUE: Supine and upright views of the abdomen. 2 views of the chest FINDINGS: Abdomen: There is a small amount of free air below the diaphragm consistent with recent surgery. The gas pattern is nonobstructive. There are no suspicious calcifications. Right hip arthroplasties partially visualized there is spondylosis of the lumbar spine. CHEST: Free air below the right hemidiaphragm consistent with recent surgery. Low lung volumes likely due to suboptimal inspiration. Lungs clear. Cardiac silhouette mediastinum pulmonary vascularity are normal. IMPRESSION: Chest: No acute disease. ABDOMEN: Nonobstructive gas pattern. Free air consistent with recent surgery DICTATED BY: Jc Mcguire MD Assessment/Plan Assessment/Plan Mrs. Zheng is a pleasant 77-year-old female with past medical history of abdominal aortic aneurysm, arthralgia, cutaneous T-cell lymphoma, hypothyroidism , dyslipidemia, GERD, hyperlipidemia, hypertension, macular degeneration, osteoarthritis, TIA and choledocholithiasis who came in for a scheduled robotic cholecystectomy on 08/10/2017. Her postop course has been complicated by continued abdominal pain as well as continued hypoxia. This is concerning in the setting of prolonged immobility, history of oncological issue (cutaneous T-cell lymphoma) and recent surgery. #Acute hypoxic respiratory failure. Differentials include PE, Atelectasis due to decreased respiratory compliance in the setting of abdominal pain/generalized deconditioning. Doppler of lower extremity to rule out DVT. CTA rule out PE. Encourage use of Incentive spirometer Adequate pain control to ensure patient's able to inspire. Use opiods sparingly. Monitor Pulse Ox. Taper O2 PRN. #Abdominal Pain s/p recent cholecytectomy. Wound looks clean dry and intact. No strikethrough or any signs of leak. No erythema. Plan Continue to monitor and if pain does not get better may consider imaging studies (CT abdomen) to ensure bile duct leak is not occurring. Use opiate medication sparingly. #History of hypothyroidism. Clinically euthyroid. Will continue levothyroxine 0.075 mg. History of hypertension Well-controlled BP 110/64 Plan Continue amlodipine 5 mg daily. History of GERD Currently stable Plan Continue omeprazole 20 mg daily. History of dyslipidemia Stable Plan Continue Atorvastatin 80 mg daily. Low fat diet. DVT PPX Heparin subcutaneous and consider heparin IV if positive for PE. Patient is a full code. DVT prophylaxis on heparin subcutaneous. May consider addition to heparin if above is positive for DVT. Patient is a full code. Problem List: 1. Hypoxia Consult Acknowledgment - Thank you for your consult request. Jc Do MD 08/14/17 6083: General Information and HPI Allergies/Medications Home Med List: Albuterol Sulfate (Proair Hfa) 90 MCG HFA.AER.AD 2 PUF INH PRN WHEEZING ( Reported) Amlodipine Besylate (Norvasc) 5 MG TABLET 1 TAB PO QAM BP (Reported) Atenolol (Tenormin) 50 MG TABLET 1 TAB PO BID BP (Reported) Atorvastatin Calcium 80 MG TABLET 1 TAB PO QPM CHOLESTEROL (Reported) Furosemide (Lasix) 80 MG TABLET 1 TAB PO QAM DIURETIC (Reported) Levothyroxine Sodium (Unithroid) 75 MCG TABLET 1 TAB PO DAILY AC THYROID ( Reported) Omeprazole 20 MG CAPSULE.DR 1 CAP PO BID PRN GI (Reported) Oxycodone HCl 5 MG TABLET 1-2 TAB PO Q4-6 PRN PAIN Assessment/Plan Consult Acknowledgment - Thank you for your consult request. Attending MD Review Statement Attending Statement Attending MD Statement: examined this patient, discuss w/resident/PA/VAMP CREASER, agreed w/resident/PA/VAMP CREASER, reviewed EMR data (avail), discussed with nursing, discussed with case mgmt, reviewed images, amended to note Attending Assessment/Plan: The patient is a 77 yo female with h/o lymphoma, CVA, GERD, hypothyroidism, HL, HTN, OA, and macular degeneration who was admitted post elective robotic lap cholecystectomy (had ERCP and stone extraction prior to admission). Medicine consult was called as she was not improving as well as typical with persistent mild hypoxemia and abdominal pain. The patient admitted to being relatively immobile prior to admission due to recent illness. She also noted some swelling of legs bilaterally which is new. She was evaluated pre-operatively by her waste examiner and was considered low risk. She denied any fever, chills, palpitations. Does not some residual right upper abdominal discomfort. She has no h/o lung disease. Physical Exam: VS: T 99.7, P 74, r 20, BP 114/60, PO 92-94% on 2L HEENT: vitaliy- dry mucosa Neck: no JVD/bruits Chest: diminished BS at bases, clear Cor: RRR nl S1, S2 w/o murm Abd: BS+, softly distended, mild RUQ/epigastric tenderness w/o guarding or rebound Ext: tr-1+ edema bilaterally with mild tenderness w/o cords Neuro: alert & oriented x 2, non-focal exam Labs/Tests as above Impression/Plan: #Hypoxemia- patient with diminished pulse ox noted 2 days post op. Possible etiologies include atelectasis secondary to hypoventilation (has not bee using incentive spirometry properly as per nursing). With recent immobility and new leg swelling must consider pulmonary embolism as possibility. D-Dimer likely to be elevated due to recent ERCP/surgery. Plan: Agree with CTPA and LE . Encourage Incentive Spirometry. Follow pulse ox. #Abdominal Pain- post op robotic lap nicki. Still with some pain and mild LFT elevation. CT did not show evidence of bile leak or infection/obstruction. Most likely normal post operative discomfort. Plan: Will follow symptoms. #Hypothyroid- on Levothyroxine. Plan: Continue Levothyroxine. #GERD- on Omeprazole Plan: Continue Omeprazole. #HTN- BP stable on Atenolol. Plan: Continue Atenolol. #Hyperlipidemia- on Atorvastatin. Plan: Continue Atorvastatin.
[2017-08-14 14:58] VITALS: BP 110/64
--- NOTE | 2017-08-14 19:11 | ULTRASOUND REPORT ---
EXAMINATION: US TRIPLEX OF LOWER EXTREMITIES, BILATERAL CLINICAL INFORMATION: Prolonged immobility. Lower extremity swelling. COMPARISON: None TECHNIQUE: Color-flow triplex imaging with spectral analysis and compression Doppler were performed on the lower extremities. FINDINGS: Respiratory variation, normal compression and augmented flow are noted throughout the lower extremities. The visualized common femoral vein, superficial femoral vein, profunda femoral vein, popliteal vein and midcalf peroneal and posterior tibial venous segments show no evidence of deep venous thrombosis. There is a 3.1 x 1.3 x 0.6 cm Subramanian cyst in the right popliteal fossa medially. The left popliteal fossa appears normal. IMPRESSION: No evidence of deep venous thrombosis involving the lower extremities. Right popliteal fossa Subramanian's cyst.
--- NOTE | 2017-08-14 19:19 | CT SCAN REPORT ---
EXAMINATION: CT ANGIOGRAM OF THE CHEST WITH AND WITHOUT CONTRAST (CT PULMONARY ANGIOGRAM FOR PE) CLINICAL INFORMATION: HYPOXIA, recent surgery COMPARISON: None TECHNIQUE: Prior to contrast administration, noncontrast localization images were obtained. Subsequently, multidetector volumetric imaging was performed from the thoracic inlet to below the diaphragms following the administration of 95 mL Optiray 320 intravenous contrast. No contrast reaction reported. Sagittal, coronal, and MIP oblique sagittal reformatted images were obtained on the CT workstation, uploaded to PACS, and reviewed. Total exam dose-length product 520.83 mGy-cm. FINDINGS: QUALITY OF STUDY/CONTRAST BOLUS: Satisfactory PULMONARY ARTERIES: No central or segmental pulmonary emboli. THORACIC AORTA: No aneurysm or dissection. LUNG: There is a small right basilar infiltrate/atelectasis at the posterior dependent lung.. PLEURA: There is a small dependent right pleural effusion. MEDIASTINUM: Normal heart size. No pericardial effusion. No hilar or mediastinal lymphadenopathy. No evidence of septal bowing or right heart strain. There is coronary artery calcification. CHEST WALL/AXILLA: No axillary or internal mammary lymphadenopathy. OSSEOUS STRUCTURES: Degenerative spondylosis spine with multilevel disc height narrowing and endplate spurring. UPPER ABDOMEN: There is pneumobilia. There is subcutaneous stranding in the right upper quadrant posteriorly. There is some subtle stranding in the mesenteric fat at the gallbladder fossa also around the inferior liver margin. The gallbladder is absent. Changes consistent with history of recent surgery, cholecystectomy. There is no focal fluid collection or abscess in the right upper quadrant. IMPRESSION: 1. No evidence of pulmonary embolism. 2. Right basilar infiltrate/atelectasis with small dependent right pleural effusion. 3. Postsurgical changes from prior cholecystectomy right upper quadrant. VTE: negative
[2017-08-14 22:28] VITALS: BP 110/70
[2017-08-15 06:52] VITALS: BP 108/68
--- NOTE | 2017-08-15 07:16 | PN- Medicine Consult ---
See Addendum Assessment/PlanMedical Consult Assessment/Plan Assessment: Mrs. Zheng is a pleasant 77-year-old female with past medical history of abdominal aortic aneurysm, arthralgia, cutaneous T-cell lymphoma, hypothyroidism , dyslipidemia, GERD, hyperlipidemia, hypertension, macular degeneration, osteoarthritis, TIA and choledocholithiasis who came in for a scheduled robotic cholecystectomy on 08/10/2017. Her postop course has been complicated by continued abdominal pain as well as continued hypoxia. This is concerning in the setting of prolonged immobility, history of oncological issue (cutaneous T-cell lymphoma) and recent surgery. Plan: #Acute hypoxic respiratory failure. PE and DVT ruled out. Encourage use of Incentive spirometer Adequate pain control to ensure patient's able to inspire. Use opiods sparingly. Monitor Pulse Ox. Taper O2 PRN. #Abdominal Pain s/p recent cholecytectomy. Wound looks clean dry and intact. No strikethrough or any signs of leak. No erythema. Plan Use opiate medication sparingly. #History of hypothyroidism. Clinically euthyroid. Will continue levothyroxine 0.075 mg. History of hypertension Well-controlled BP 108/68 Plan Continue amlodipine 5 mg daily. History of GERD Currently stable Plan Continue omeprazole 20 mg daily. History of dyslipidemia Stable Plan Continue Atorvastatin 80 mg daily. Low fat diet. DVT PPX Heparin subcutaneous Patient is a full code. Subjective Subjective: Ms. Puentes was seen and examined this morning. She is resting comfortably in bed. Denies any issues overnight. States that she feels much better this morning. Patient does not endorse any SOB. States Abdominal pain is better controlled. Pain is rated at a 4 out of 10 in severity. Had a small BM this am. Denies any fever, chills, nausea, vomiting. Denies any heart palpitations or chest discomfort. She is tolerating by mouth intake well. Review of Systems Constitutional: Reports: see HPI. Objective Last 24 Hrs of Vital Signs/I&O Vital Signs Date Time Temp Pulse Resp B/P B/P Pulse O2 O2 Flow FiO2 Mean Ox Delivery Rate 08/15 0818 108/68 08/15 0918 108/68 08/15 0652 97.9 66 20 108/68 94 / 0000 93 Nasal 1.0L Cannula 08/14 2228 98.2 78 18 110/70 93 Nasal 2.0L Cannula 08/14 1800 Nasal 1.0L Cannula 08/14 1458 98.4 70 20 110/64 96 Nasal Cannula Intake & Output 08/15 1600 08/15 0800 08/15 0000 Intake Total 150 720 Output Total 600 600 Balance -450 120 Intake, Oral 150 720 Number 2 Bowel Movements Output, Urine 600 600 Physical Exam General Appearance: well developed/nourished, no apparent distress Ears, Nose, Throat: normal pharynx Neck: normal inspection Cardiovascular: regular rate/rhythm Respiratory: normal breath sounds Peripheral Pulses: 4+ dorsalis pedis (R), 4+ dorsalis pedis (L) Abdomen: normal bowel sounds, soft, non-tender, No Guarding. Abdominal Bandages in place. Back: normal inspection, normal range of motion Extremities: normal inspection, normal capillary refill, normal range of motion, no edema Neurologic/Psychiatric: awake, alert, oriented x 3 Current Medications: Current Medications Sig/Marquez Start time Last Medication Dose Route Stop Time Status Admin Acetaminophen 500 MG Q4-6 PRN PRN 08/13 0800 AC PO Albuterol Sulfate 2 PUF Q4P PRN 08/10 2115 AC INH Amlodipine Besylate 5 MG DAILY 08/11 0900 AC 08/15 PO 0918 Atenolol 50 MG BID 08/10 2100 AC 08/15 PO 0918 Atorvastatin Calcium 80 MG 1700 08/10 1700 AC 08/14 PO 1617 Bisacodyl 10 MG DAILY NEEDED PRN 08/13 0815 AC WA Docusate Sodium 100 MG BID 08/13 0900 AC 08/15 PO 0918 Furosemide 80 MG DAILY 08/11 0900 AC 08/15 PO 0918 Heparin Sodium 5,000 UNIT Q8 08/10 2200 AC 08/15 (Porcine) SC 0522 Levothyroxine Sodium 0.075 MG DAILY AC 08/11 0700 AC 08/15 PO 0522 Melatonin 5 MG AT BEDTIME 08/10 2245 AC 08/14 PO 2131 Omeprazole 20 MG BID 08/10 2100 AC 08/15 PO 0918 Oxycodone HCl 5 MG Q4-6 PRN PRN 08/10 1500 AC 08/12 PO 1720 Oxycodone HCl 10 MG Q4-6 PRN PRN 08/10 1500 AC 08/14 PO 2131 Patient Medication 1 ED ONE ONE 08/14 1645 DC 08/14 Teaching ED 08/14 1646 2132 Polyethylene Glycol 17 GM DAILY PRN 08/13 2004 AC 08/13 PO 2012 Potassium Chloride 10 MEQ BID 08/11 114 AC 08/15 PO 0918 Results Last 24 Hrs Lab/[facility] Results: Laboratory Tests 08/15/17 0713: Anion Gap 12, Estimated GFR > 60, BUN/Creatinine Ratio 16.0, Total Bilirubin 0.8 , Direct Bilirubin 0.5 H, AST 38 H, ALT 54 H, Alkaline Phosphatase 157 H, Total Protein 5.8 L, Albumin 2.9 L, CBC w Diff Pending, WBC Pending, RBC Pending, Hgb Pending, Hct Pending, MCV Pending, MCH Pending, MCHC Pending, RDW Pending, Plt Count Pending, MPV Pending 08/14/17 1555: D-Dimer High Sensitivty Cancelled Microbiology 08/14 1551 URINE ROUT: Urine Culture - COLB Recent Imaging Studies: SERVICE DATE: 08/14/17-1616 EXAM TYPE: CAT - CTA CHEST-PULMONARY EMBOLISM IMPRESSION: 1. No evidence of pulmonary embolism. 2. Right basilar infiltrate/atelectasis with small dependent right pleural effusion. 3. Postsurgical changes from prior cholecystectomy right upper quadrant. VTE: negative DICTATED BY: Yonas Goins MD SERVICE DATE: 08/14/17- EXAM TYPE: US - US-EXT BILAT VENOUS DOPPLER IMPRESSION: No evidence of deep venous thrombosis involving the lower extremities. Right popliteal fossa Subramanian's cyst. DICTATED BY: Twin Peraza MD
--- NOTE | 2017-08-15 07:32 | PN- General Surgery ---
Surgical Brief Attending Note Brief Attending Note: Patient feeling much better today Breathing easier Appreciate medicine systems DVT PE ruled out DC home today Follow home with Dr. Escobedo next week
[2017-08-15] MEDS ORDERED: PERCOCET 5-3251 EACH PO ×2 (07:52→08:07)
[2017-08-15] MEDS ORDERED: OXYCODONE HCL5 M1 PO (08:12)
[2017-08-15 09:18] VITALS: BP 108/68
[2017-08-15 09:28] LABS: ABSOLUTE BASOPHIL COUNT 0 /CUMM (0.0-0.2); ABSOLUTE EOSINOPHIL COUNT 0.2 /CUMM (0.0-0.7); ABSOLUTE GRANULOCYTE CT 7.3 /CUMM (1.4-6.5); ABSOLUTE MONOCYTE COUNT 0.9 /CUMM (0.10-0.60); BASOPHIL % 0.5 % (0.0-2.0); EOSINOPHIL % 2.2 % (0-5); GRANULOCYTE % 70.1 % (42.2-75.2); HEMATOCRIT 34.2 % (37-47); MEAN CORPUSCULAR HGB 29.2 PG (27.0-31.0); MEAN CORPUSCULAR VOLUME 85.9 FL (81.0-99.0); MEAN PLATELET VOLUME 7.3 FL (7.4-10.4); PLATELET COUNT 347 /CUMM (130-400); RBC DISTRIBUTION WIDTH 16.5 % (11.5-14.5); RED BLOOD CELL CT 3.98 /CUMM (4.20-5.40); WHITE BLOOD CELL COUNT 10.5 /CUMM (4.8-10.8)
== END 2017-08-15 13:05 | disposition home health service (06) | DRG 419 ==
LOC: 2NB 01:45 → SDA 01:45 → EDSTATUS 07:00 → STS 07:00 → ENRESERV 11:37 → ENTRNSPT 14:06 → EDTRNSPTSTS 14:29 → EDTRNSPT 14:29 → 2NB 14:36 → CMPTRNSPT 15:07 → 2NB 08-12 13:43 → ENPENDDIS 08-15 08:09 → ENTRNSPT 08-15 12:40 → EDTRNSPTSTS 08-15 12:59 → EDTRNSPT 08-15 12:59 → CMPTRNSPT 08-15 13:03 → 2NB 08-15 13:05
PROVIDERS: Physician Assistant; Physician Assistant Surgical
PROC: 8E0W4CZ Robotic Assisted Procedure of Trunk Region, Percutaneous Endoscopic Approach (ICD-10-PCS; principal; 2017-08-10)
PROC: 0FT44ZZ Resection of Gallbladder, Percutaneous Endoscopic Approach (ICD-10-PCS; principal; 2017-08-10)
DX: K80.20 Calculus of gallbladder without cholecystitis without obstruction (principal); E03.9 Hypothyroidism, unspecified; E66.9 Obesity, unspecified; Z68.33 Body mass index [BMI] 33.0-33.9, adult; K21.9 Gastro-esophageal reflux disease without esophagitis; E78.5 Hyperlipidemia, unspecified; Z86.73 Personal history of transient ischemic attack (TIA), and cerebral infarction without residual deficits; Z85.72 Personal history of non-Hodgkin lymphomas; M19.90 Unspecified osteoarthritis, unspecified site; Z88.2 Allergy status to sulfonamides; Z88.8 Allergy status to other drugs, medicaments and biological substances; Z79.891 Long term (current) use of opiate analgesic; Z79.51 Long term (current) use of inhaled steroids; R60.0 Localized edema; R10.9 Unspecified abdominal pain; R09.02 Hypoxemia
CPT/HCPCS: 2NBSP; 36415; 36592; 71046; 74021; 82436; 87086; 93970; 97116-GO; 97161-GP; 97530-GO; C9399; J0131; J1644; J2405; J3490; J7042